=== PATIENT | male | born 1950 | race Caucasian/White ===

== ENCOUNTER → 2018-02-27 06:59 | Outpatient (CLI) | payer MEDICARE, SELFPAY ==
[2018-02-27 07:40] LABS: Cholesterol 182 mg/dL (140-199); HDL Cholesterol 42 mg/dL (40-60); LDL Cholesterol Calculated 115 mg/dL (<100); Triglycerides 126 mg/dL (35-150)
== END ==
PROVIDERS: PCP Internal Medicine; Visit Provider Internal Medicine Cardiovascular Disease
DX: I10 Essential (primary) hypertension (principal); E78.5 Hyperlipidemia, unspecified
CPT/HCPCS: 36415; 80061

== ENCOUNTER → 2018-03-02 10:46 | Outpatient (CLI) | payer MEDICARE, SELFPAY ==
--- NOTE | 2018-03-02 | DI.ECHO.S_ITS ---
[facility]---------+ [facility] +---------+ : : [address] : : : : [id number] : : : : Phone: [phone]---------+ Echocardiogram Report + + :Name: TORI SINGH Study Date: 03/02/2018 Height: 67 in : :[facility] Weight: 235 lb : : Gender: Male BSA: 2.2 m2 : :: 1950 Age: 68 yrs BP: 116/62 mmHg: :Reason For Study: Chemotherapy F/U (ICD Code V67.2) : : Performed By: Yesenia Mae : :Referring: JOVANI SILVERMAN : + + Interpretation Summary Left ventricular size is at the upper limits of normal. This is decreased compared to the previous study. The ejection fraction is estimated to be 60-65%. There has been no significant change in LV EF since the previous study. The right ventricle is grossly normal size. The right ventricular systolic function is normal. No significant valvular pathology seen. Procedure: A two-dimensional transthoracic echocardiogram with color flow and Doppler was performed. The study quality was technically adequate. Comparison is made with the echocardiogram of 09-01-17. The patient was in normal sinus rhythm during the exam. Left Ventricle: There is normal left ventricular wall thickness. Left ventricular size is at the upper limits of normal. This is decreased compared to the previous study. There is no thrombus. The ejection fraction is estimated to be 60-65%. There has been no significant change since the previous study. There are no focal wall motion abnormalities. Assessment of diastolic parameters indicates a relaxation abnormality of the left ventricle, consistent with normal filling pressures. Right Ventricle: The right ventricle is grossly normal size. The right ventricular systolic function is normal. Atria: The left atrial size is normal. The left atrium has significantly decreased in size since the prior echo exam. The right atrium is borderline dilated. The interatrial septum is intact with no evidence for an atrial septal defect. Mitral Valve: The mitral valve is normal in structure and function. There is trace mitral regurgitation. Aortic Valve: The aortic valve is slightly calcified. The aortic valve is not well visualized. There is no aortic valve stenosis. No aortic regurgitation is present. Tricuspid Valve: The tricuspid valve is normal. The right ventricular systolic pressure is estimated at 24 mmHg assuming a right atrial pressure of 3 mm Hg. There is trace tricuspid regurgitation. Pulmonic Valve: The pulmonic valve is not well visualized. Great Vessels: The aortic root is normal size. The ascending aorta is mildly enlarged. The IVC is of normal diameter and collapses greater than 50% with a sniff. This suggests a low right atrial pressure of 3 mm Hg. Pericardium/ Pleura There is no pericardial effusion. There is no pleural effusion. MMode/2D Measurements & Calculations LVIDd: 5.7 cm Ao root diam: 3.8 cm LVIDs: 3.5 cm Aortic Jxn: 3.1 cm FS: 39.0 % asc Aorta Diam: 3.7 cm EPSS: 1.3 cm Ao Arch Diam (Prox Trans): 3.2 cm IVSd: 1.1 cm LVPWd: 0.95 cm LV parra. diameter/BSA (cm/m^2): 2.6 LV sys. diameter/BSA (cm/m^2): 1.6 LA dimension: 4.3 cm RA long axis: 6.5 cm LA A2 area: 23.0 cm2 RA area: 24.8 cm2 LA A4 area: 23.7 cm2 RA vol: 79.7 ml LA length (vol): 6.6 cm RA : 36.8 ml/m2 LA vol: 70.2 ml IVC diam: 1.7 cm LA vol index: 32.4 ml/m2 RVDd major: 6.8 cm RVD1 (basal): 4.1 cm RVD2 (mid): 3.7 cm Doppler Measurements & Calculations Ao V2 max: 178.8 cm/sec MV E max dhaval: 56.4 cm/sec Ao V2 mean: 112.2 cm/sec MV A max dhaval: 81.6 cm/sec Ao max P.8 mmHg MV E/A: 0.69 Ao mean P.0 mmHg Med Peak E' Dhaval: 6.1 cm/sec Ao V2 VTI: 34.9 cm E/E' med: 9.2 Lat Peak E' Dhaval: 6.1 cm/sec E/E' lat: 9.3 E/e' average: 9.2 MV dec time: 0.37 sec MV P1/2t: 111.8 msec TR max dhaval: 229.0 cm/sec MV P1/2t max dhaval: 56.9 cm/sec TR max P.0 mmHg MVA(P1/2t): 2.0 cm2 PA V2 max: 112.8 cm/sec PA V2 mean: 75.7 cm/sec PA mean P.7 mmHg PA Accel Time: 0.10 sec Reading Physician:FERNANDO
== END ==
PROVIDERS: PCP Internal Medicine; Visit Provider Internal Medicine Cardiovascular Disease
DX: I51.7 Cardiomegaly (principal)
CPT/HCPCS: 93306

== ENCOUNTER → 2018-06-01 08:02 | Outpatient (CLI) | payer MEDICARE, SELFPAY ==
--- NOTE | 2018-06-01 08:45 | DI.CT.S_ITS ---
PROCEDURE: CT CHEST ABD PEL W CON INDICATIONS: surveillance,lymphoma TECHNIQUE: After the administration of oral and intravenous contrast, 5 mm thick sections acquired from the lung apices to the symphysis. 5 mm coronal and sagittal reformats were performed, with additional 7 mm coronal MIP reformats through the lungs. For radiation dose reduction, the following was used: automated exposure control, adjustment of mA and/or kV according to patient size. COMPARISON: [place], [place], PET/CT SKULL BASE TO MID THIGH, 08/22/2017, 10:50. [place], [place], PET NECK TO MID THIGH STD, 05/08/2017, 9:29. [facility], CT, CHEST/ABD/PEL WITH CONTRAST, 10/28/2014, 16:48. [facility], CT, CHEST/ABD/PEL WITH CONTRAST, 11/17/2013, 11:46. [facility], CT, CHEST/ABD/PEL WITH CONTRAST, 07/29/2013, 8:35. [facility], CT, ABDOMEN/PELVIS WITH CONTRAST, 07/20/2012, 10:44. FINDINGS: Image quality: Excellent. CHEST: Lungs and pleura: No acute airspace opacities. No pleural effusions or pneumothorax. Central and peripheral airways appear patent and normal in caliber. Mediastinum: Heart size is normal. Atherosclerotic calcifications are noted in the aorta, great vessels and the coronary vasculature. No pericardial effusion. No mediastinal or hilar adenopathy by size criteria. Thoracic aorta and central pulmonary arteries are normal in size. Esophagus is normal in caliber. No hiatal hernia. Chest wall: Left chest wall Port-A-Cath. No axillary or supraclavicular adenopathy by size criteria. Thyroid gland is normal. ABDOMEN: Solid organs: Liver is normal in size and enhancement. Mild, diffuse fatty infiltration of the liver. Gallbladder is normal. Biliary system is non dilated. Pancreas enhances normally. Spleen is normal in size and enhancement. No adrenal nodules. Kidneys demonstrate normal size and enhancement, without hydronephrosis. Small bilateral renal cysts. Peritoneum and bowel: Bowel loops demonstrate normal wall thickness and caliber. No free fluid or air. The appendix is normal. Nodes and vessels: 1.2 cm in short axis lower aortocaval retroperitoneal lymph node is noted which is slightly decreased in size compared to 08/22/2017. Additional enlarged retroperitoneal lymph nodes identified by prior PET/CT scan are decreased in size with with all below pathologic size criteria in the current study. No mesenteric adenopathy by size criteria. Aorta and inferior vena cava are normal in size. Scattered atherosclerotic calcifications involving the abdominal and pelvic vasculature. Miscellaneous: Small fat-containing umbilical hernia is stable. PELVIS: Genitourinary: Bladder wall thickness is normal. Miscellaneous: No inguinal hernias. Single, 1.5 cm right inguinal lymph node is noted which is slightly decreased in size compared to prior PET/CT scan. Additional enlarged right inguinal lymph nodes have decreased in size compared to prior PET/CT scan obtained 08/22/2017 with all below pathologic size criteria in the current study. Bones: No suspicious bony lesions. No vertebral body compression fractures. Spine degenerative disc disease and facet arthropathy. IMPRESSION: 1. Enlarged retroperitoneal, iliac and inguinal lymph nodes have decreased in number compared to prior PET CT scan obtained 08/22/2017 with only a single lower aortocaval retroperitoneal pathologically sized lymph node and a single right inguinal pathologically sized lymph node identified in the current study. 2. No new lymphadenopathy based on size criteria. 3. Atherosclerosis including the coronary vasculature. 4. Mild hepatic steatosis. Dictated by: Vaishali Zurita MD, PhD on 06/01/2018 at 10:25 Approved by: Vaishali Zurita MD, PhD on 06/01/2018 at 11:09
== END ==
PROVIDERS: PCP Internal Medicine; Visit Provider Nurse Practitioner Gerontology
DX: C85.90 Non-Hodgkin lymphoma, unspecified, unspecified site (principal); I25.10 Atherosclerotic heart disease of native coronary artery without angina pectoris; K76.0 Fatty (change of) liver, not elsewhere classified; R59.0 Localized enlarged lymph nodes
CPT/HCPCS: 71260; 74177; Q9967

== ENCOUNTER 2019-08-30 12:12 | Day surgery (SDC) | payer MEDICARE, SELFPAY ==
[2019-08-25 13:38] VITALS: BMI 34.9
[2019-08-30] VITALS (7 sets, daily range): BP systolic 123–146; BP diastolic 72–83; PULSE 55–63; RESP 11–16; TEMP 36.2–36.6; O2SAT 93–96; BMI 34.9
[2019-08-30] MEDS: LACTATED RINGERS 1,000 ML 100 ML IV (12:44)
--- NOTE | 2019-08-30 12:55 | PM.HP.1 ---
History of Present Illness History of Present Illness Date Patient Seen: 08/30/19 Time Patient Seen: 12:55 Chief complaint: [id number] REMOVE PORT-A-CATH Narrative: Patient is a gentleman post treatment of lymphoma for removal of his Port-A-Cath Patient History Medical History Acid reflux (Acute) Arthritis (Acute) Chronic pain of right knee (Acute) HLD (hyperlipidemia) (Acute) HTN (hypertension) (Acute) Hypothyroid (Acute) Myocardial infarction (Acute ~1986) Neuropathy (Acute) Port-A-Cath in place (Acute ~04/2017) Reactive airway disease (Acute) Seasonal allergies (Acute) Sleep apnea (Acute) Type II diabetes mellitus (Acute) Surgical History History of biopsy (Acute 07/21/13) History of colonoscopy (Acute) History of esophagogastroduodenoscopy (EGD) (Acute) Hx of bilateral cataract extraction (Acute ~2000) Status post correction of deviated nasal septum (Acute ~1999) Family & Social History Social History: household members spouse Tobacco & Substance use: Tobacco type cigarettes,pipe Smoking Status Former smoker alcohol intake current alcohol intake frequency 0-2 drinks per day Substance Use Type does not use Meds Home Medications and Allergies Home Medications Medication Instructions Recorded Confirmed Type nitroglycerin [Nitrostat] 0.6 mg SUBLINGUAL PRN PRN #0 04/16/17 08/25/19 History lidocaine-prilocaine 1 zuhair TOPICAL PRN PRN #30 gm 04/30/17 08/25/19 Rx ibuprofen 400 mg PO TID PRN #0 08/27/17 08/25/19 History carvedilol [Coreg] 2 tab PO BID #0 12/08/17 08/30/19 History aspirin 81 mg PO DAILY 02/13/18 08/30/19 History glipizide 10 mg PO BID 02/13/18 08/30/19 History losartan-hydrochlorothiazide 1 tab PO DAILY 02/13/18 08/30/19 History nortriptyline 10 mg PO BEDTIME 08/03/18 08/30/19 History metformin 1,000 mg PO BID 11/23/18 08/30/19 History levothyroxine 175 mcg PO DAILY 01/18/19 08/30/19 History polyethylene glycol 3350 [Miralax] 1 g PO DAILY 01/18/19 08/30/19 History Allergies Allergy/AdvReac Type Severity Reaction Status Date / Time Sulfa (Sulfonamide Allergy Severe ANAPHYLAXIS Verified 08/30/19 12:26 Antibiotics) [SULFA (SULFONAMIDE ANTIBIOTICS)] lisinopril [LISINOPRIL] Allergy Mild COUGH Verified 08/30/19 12:26 Review of Systems Review of Systems Narrative: No recent chest pain. No breathing difficulties at this time. No abdominal pain. No black or bloody bowel movements. Exam Vital Signs (past 8 hours): - 08/30/19 12:36 Temperature 97.3 F L Pulse Rate 60 Respiratory Rate 16 Blood Pressure 142/83 H Pulse Oximetry 96 Oxygen Delivery Method Room Air Narrative Exam Narrative: Pleasant cooperative patient no apparent distress. Lungs are clear to auscultation. No rales or rhonchi. Heart regular rate and rhythm no murmur gallop. Abdomen is soft and protuberant, nontender without mass. No obvious hernias. Patient is alert and oriented x3. Port is located in the left infraclavicular fossa. The skin over it is a little attenuated. Assessment & Plan Assessment & Plan narrative: Patient for port removal. Glucose is 202. He was given IV insulin 5 units of Humulin regular. Will recheck. This is a fairly minor procedures so I would not delay proceeding to the operating room. I've discussed the procedure including risks of bleeding infection the possibility of a divot where remove the port. He understands and wishes to proceed
[2019-08-30] MEDS: INSULIN REGULAR 100 UNIT/ML 3 ML VIAL IV (12:57)
--- NOTE | 2019-08-30 12:58 | PM.PREOP ---
Pre-operative Note Interval Note History & Physical reviewed/Exam performed by Physician: Yes Changes to H&P: No
[2019-08-30] MEDS: CEFAZOLIN 2 GM/100 ML FROZ.PIGGY IV (13:15)
--- NOTE | 2019-08-30 13:37 | SUR.OPER ---
Supine on padded OR bed, head on pillow, arms secured on padded arm boards at <90 degrees abduction, legs uncrossed, safety belt at thigh, tape over blanket over lower legs.
[2019-08-30] MEDS: BUPIVACAINE 0.5% (PF) VIAL 10 ML INJ (13:41)
--- NOTE | 2019-08-30 13:56 | PM.OP.1 ---
Operative Date/Time/Diagnoses Date of procedure: 08/30/19 Time of procedure: 13:56 Pre-op diagnosis: History of lymphoma post treatment Post-op diagnosis: same Procedure & Clinicians Procedure: Removal Port-A-Cath Same procedure as scheduled: Yes Indications: Patient has completed chemotherapy. Request made removed Port-A-Cath. Surgeon: José Miguel Calabrese Click Yes if Unassisted: Yes Anesthesia Type: General Operative Notes Findings: Port removed intact Closure Type: primary Specimen(s): none sent Estimated Blood Loss (mL): 5 Blood products transfused: none Procedure in detail: The patient was placed supine on the operating room table and underwent general LMA anesthesia. He was prepped and draped in the usual fashion. Local anesthetic was infiltrated in a field block fashion around the port. Incisions made through the old scar up. This carried down level the port. The port was dissected from surrounding structures and the catheter pulled out. A [id number] 3 0 Vicryl was used to close the catheter tract. The subcu was closed with interrupted 3 0 Vicryl and skin was closed with vertical mattress for nylon sutures because of the unevenness of the skin given the location of the port right under the incision. Dressing was applied the patient was awakened extubated taken recovery area in good condition Complications: none Post-operative Condition: stable Disposition: PACU
--- NOTE | 2019-08-30 14:19 | SUR.PHASEI ---
1419 Stable, oriented, tolerating Po well, no pain/nausea
== END 2019-08-30 14:45 | disposition home or self-care (01) ==
PROVIDERS: Family Provider Internal Medicine; PCP Internal Medicine; Visit Provider Specialist
PROC: (CPT 36590; principal; 2019-08-30 13:15)
DX: Z85.72 Personal history of non-Hodgkin lymphomas (principal); Z45.2 Encounter for adjustment and management of vascular access device; I10 Essential (primary) hypertension; E78.5 Hyperlipidemia, unspecified; E03.9 Hypothyroidism, unspecified; G47.30 Sleep apnea, unspecified; E11.9 Type 2 diabetes mellitus without complications; I25.2 Old myocardial infarction
CPT/HCPCS: 36590; J0690; J2704; J3010

== ENCOUNTER → 2020-03-19 14:35 | Outpatient (CLI) | payer MEDICARE, SELFPAY ==
[2020-03-20 08:41] LABS: COVID19 Sendout Not Detected (Not Detect)
== END ==
PROVIDERS: Family Provider Internal Medicine; PCP Internal Medicine; Visit Provider Physician Assistant
DX: Z01.812 Encounter for preprocedural laboratory examination (principal)
CPT/HCPCS: 87635

== ENCOUNTER 2020-03-22 10:40 | Day surgery (SDC) | payer MEDICARE, SELFPAY ==
[2020-03-22 11:53] VITALS: BP 120/74; PULSE 54; RESP 16; TEMP 36.4; O2SAT 97; BMI 35.2
[2020-03-22] MEDS: SODIUM CHLORIDE 0.9% 1,000 ML 100 ML IV (12:01)
--- NOTE | 2020-03-22 12:49 | PM.HP.1 ---
History of Present Illness History of Present Illness Date Patient Seen: 03/22/20 Date of Onset of Symptoms: 03/22/20 Chief complaint: [id number] Narrative: Family history of colon cancer in both of his brothers 1 in his 30s. Personal history of colon polyps Patient History Medical History (Updated 08/31/19 @ 16:57 by José Miguel Calabrese MD) Acid reflux (Acute) Arthritis (Acute) Chronic pain of right knee (Acute) HLD (hyperlipidemia) (Acute) HTN (hypertension) (Acute) Hypothyroid (Acute) Myocardial infarction (Acute ~1986) Neuropathy (Acute) Port-A-Cath in place (Acute ~04/2017) Reactive airway disease (Acute) Seasonal allergies (Acute) Sleep apnea (Acute) Type II diabetes mellitus (Acute) Surgical History History of biopsy (Acute 07/21/13) History of colonoscopy (Acute) History of esophagogastroduodenoscopy (EGD) (Acute) Hx of bilateral cataract extraction (Acute ~2000) Status post correction of deviated nasal septum (Acute ~1999) Family & Social History Social History: household members spouse Tobacco & Substance use: Tobacco type cigarettes,pipe Smoking Status Former smoker alcohol intake current alcohol intake frequency 0-2 drinks per day Substance Use Type does not use Meds Home Medications and Allergies Home Medications Medication Instructions Recorded Confirmed Type nitroglycerin [Nitrostat] 0.6 mg SUBLINGUAL PRN PRN #0 04/16/17 03/22/20 History ibuprofen 400 mg PO TID PRN #0 08/27/17 03/22/20 History carvedilol [Coreg] 2 tab PO BID #0 12/08/17 03/22/20 History aspirin 81 mg PO DAILY 02/13/18 03/22/20 History glipizide 10 mg PO BID 02/13/18 03/22/20 History losartan-hydrochlorothiazide 1 tab PO DAILY 02/13/18 03/22/20 History nortriptyline 10 mg PO BEDTIME 08/03/18 03/22/20 History metformin 1,000 mg PO BID 11/23/18 03/22/20 History levothyroxine 175 mcg PO DAILY 01/18/19 03/22/20 History polyethylene glycol 3350 [Miralax] 1 g PO DAILY 01/18/19 03/22/20 History Allergies Allergy/AdvReac Type Severity Reaction Status Date / Time Sulfa (Sulfonamide Allergy Severe ANAPHYLAXIS Verified 03/22/20 12:03 Antibiotics) [SULFA (SULFONAMIDE ANTIBIOTICS)] lisinopril [LISINOPRIL] Allergy Mild COUGH Verified 03/22/20 12:03 nickel AdvReac Verified 03/22/20 12:03 Tegaderm Allergy Intermediate Rash Uncoded 03/22/20 12:03 Exam Vital Signs (past 8 hours): - 03/22/20 11:53 Temperature 97.6 F Pulse Rate 54 L Respiratory Rate 16 Blood Pressure 120/74 Pulse Oximetry 97 Oxygen Delivery Method Room Air Narrative Exam Narrative: Oropharynx free of lesions Chest clear to auscultation percussion Cardiac exam reveals no S3 or murmur Assessment & Plan Assessment & Plan narrative: Family history of colon cancer in 2 first-degree relatives 100 very young age and personal history of colon polyps. Need for follow-up colonoscopy. Risks, benefits, alternatives have been explained.
--- NOTE | 2020-03-22 12:51 | PM.OP.ENDO ---
Operative Date/Time/Diagnoses Date of procedure: 03/22/20 Time of procedure: 12:51 Pre-op diagnosis: See indication and findings Procedure & Clinicians Study performed: colonoscopy Indications: Family history of colon cancer in 2 brothers 1 less than 40 years of age Surgeon: Gianna Casas Procedure Notes Procedure in detail: After informed consent was obtained the patient was placed in left lateral decubitus position. The video colonoscope was introduced the rectum slowly advanced to cecum. Preparation was good. On slow withdrawal mucosa was carefully examined. The scope was removed. The patient tolerated procedure well. Blood loss none Complications none Sedation Total sedation time 18 minutes Versed 4 mg fentanyl 100 mg IV titration Findings 1. Normal colonoscopy to cecum Given his strong family history he will need follow-up colonoscopy in 5 years.
[2020-03-22] MEDS: MIDAZOLAM 5 MG/5 ML VIAL IV (13:04)
[2020-03-22] MEDS: fentaNYL 250 MCG/5 ML INJ IV (13:04)
[2020-03-22 13:09] VITALS: BP 114/74; PULSE 56; RESP 11; TEMP 36.2; O2SAT 91
[2020-03-22 13:14] VITALS: BP 113/73; PULSE 57; RESP 12; O2SAT 91
[2020-03-22 13:19] VITALS: BP 109/50; PULSE 59; RESP 16; O2SAT 97
[2020-03-22 13:24] VITALS: BP 114/63; PULSE 59; RESP 12; O2SAT 95
[2020-03-22 13:30] VITALS: BP 115/56; PULSE 53; RESP 14; O2SAT 97
== END 2020-03-22 14:00 | disposition home or self-care (01) ==
PROVIDERS: PCP Internal Medicine; Referring Provider Internal Medicine Gastroenterology; Visit Provider Internal Medicine Gastroenterology
PROC: 0DJD8ZZ Inspection of Lower Intestinal Tract, Via Natural or Artificial Opening Endoscopic (ICD-10-PCS; CPT 45378; principal; 2020-03-22 12:30)
DX: Z12.11 Encounter for screening for malignant neoplasm of colon (principal); Z86.010 Personal history of colon polyps; Z80.0 Family history of malignant neoplasm of digestive organs; I10 Essential (primary) hypertension; E78.5 Hyperlipidemia, unspecified; E03.9 Hypothyroidism, unspecified; I25.2 Old myocardial infarction; G47.33 Obstructive sleep apnea (adult) (pediatric); E11.9 Type 2 diabetes mellitus without complications; Z79.84 Long term (current) use of oral hypoglycemic drugs
CPT/HCPCS: G0105; J2250; J3010

== ENCOUNTER → 2020-04-17 08:35 | Outpatient (CLI) | payer MEDICARE, SELFPAY ==
[2020-04-17 09:03] LABS: Add Manual Diff / Slide Review NO; Basophils Absolute Auto 100 /uL (0-100); Basophils Percent Auto 1.1 % (0-2); Eosinophils Absolute Auto 100 /uL (0-450); Eosinophils Percent Auto 2.5 % (2-4); Hematocrit 41.5 % (41-53); Hemoglobin 14.2 g/dL (13.5-17.5); Lymphocytes Absolute Auto 1300 /uL (1100-4500); Lymphocytes Percent Auto 23.6 % (25-40); Mean Corpuscular HGB Conc 34.1 % (30-36); Mean Corpuscular Hemoglobin 31.4 PG (26-34); Mean Corpuscular Volume 92.2 fL (80-100); Monocytes Absolute Auto 700 /uL (0-900); Monocytes Percent Auto 13.2 % (3-14); Neutrophils Absolute Auto 3300 /uL (1500-7000); Neutrophils Percent Auto 59.6 % (50-75); Platelet Count 171 X10^3/uL (150-400); Red Cell Distribution Width 13.4 % (11.6-14.8); White Blood Cell Count 5.5 X10^3/uL (4.5-11.0)
[2020-04-17 09:18] LABS: Alanine Aminotransferase 29 IU/L (<50); Albumin Globulin Ratio 1.6 (1.0-2.8); Alkaline Phosphatase 64 U/L (38-126); Aspartate Aminotransferase 34 IU/L (17-59); BUN Creatinine Ratio 27.2 (6-22); Bilirubin Total 0.8 mg/dL (0.2-1.3); Blood Urea Nitrogen 25 mg/dL (9-20); Calcium 9.2 mg/dL (8.4-10.2); Carbon Dioxide 29 mmol/L (22-32); Chloride 101 mmol/L (98-107); Estimated Glomerular Filt Rate > 60.0 mL/min (>60); Globulin 2.5 g/dL (1.7-4.1); Glucose 198 mg/dL (80-110); HEMOLYSIS < 15 (0-50); Lactate Dehydrogenase 347 U/L (313-618); Potassium 3.8 mmol/L (3.4-5.1); Sodium 136 mmol/L (137-145); Total Protein 6.5 g/dL (6.3-8.2)
[2020-04-19 04:08] LABS: Beta-2-Microglobulin 1.6 mg/L (0.6-2.4)
== END ==
PROVIDERS: PCP Internal Medicine; Referring Provider Internal Medicine Hematology & Oncology; Visit Provider Internal Medicine Hematology & Oncology
DX: C85.90 Non-Hodgkin lymphoma, unspecified, unspecified site (principal)
CPT/HCPCS: 36415; 80053; 82232; 83615; 85025

== ENCOUNTER → 2020-07-25 15:31 | Outpatient (CLI) | payer MEDICARE, SELFPAY ==
[2020-07-27 07:25] LABS: COVID19 Sendout Not Detected (Not Detect)
== END ==
PROVIDERS: PCP Internal Medicine; Visit Provider Physician Assistant
DX: Z01.812 Encounter for preprocedural laboratory examination (principal)
CPT/HCPCS: 87635

== ENCOUNTER → 2020-07-28 13:57 | Outpatient (CLI) | payer MEDICARE, SELFPAY ==
--- NOTE | 2020-07-28 | DI.NM.S_ITS ---
PROCEDURE: NM EXERCISE TREADMILL NON NUC COMPARISON: None. INDICATIONS: Old myocardial infarction FINDINGS: The patient exercised for 7 minutes and 55 seconds on mahin protocol and reached 10;.1 MET with JOSÉ MANUEL -13%. Target heart rate achieved. Appropriate BP response to exercise. Resting ECG shows sinus rhythm with non-specific T wave flattening diffusely. No ST depressions with exercise or during recovery. The T wave inversions noted in the anterolateral leads during recovery is non-diagnostic and likely due to baseline T wave changes. Non-sustained VT runs noted during early recovery (long run being 6 beats long). IMPRESSION: Abnormal due to palpitations associated with non-sustained VT runs during early recovery (longest being 6 beats long). No ischemic ECG changes during the study. No angina during the study. Adequate stress test as target heart rate reached. Dictated by: iMs Montesinos MD on 07/28/2020 at 18:37 Approved by: Mis Montesinos MD on 07/28/2020 at 18:41
--- NOTE | 2020-07-28 | DI.ECHO.S_ITS ---
[facility]---------+ [facility] +---------+ : : [address] : : : : [phone] : : : : Phone: [phone] +---------+ Echocardiogram Report + + :Name: TORI SINGH Study Date: 07/28/2020 Height: 67 in : :[facility] Weight: 226 lb : : Gender: Male BSA: 2.1 m2 : :: 1950 Age: 70 yrs BP: 148/85 mmHg: :Reason For Study: Old Myocardial infarction : :Ordering Physician: Quique : :Chanda Basilio Performed By: Shana Giraldo : + + Interpretation Summary 1) Normal left ventricular thickness, size, wall motion, and systolic function (EF 60-65%). 2) Normal right ventricular size and function. 3) No significant valvular abnormalities. 4) The aortic root is borderline dilated at 4.0cm. 5) Compared to the Echo done 03/02/2018, no significant change. Procedure: A two-dimensional transthoracic echocardiogram with color flow and Doppler was performed. The study quality was technically adequate. Comparison is made with the echocardiogram of 03/02/2018. A contrast injection of Definity was performed to improve assessment of LV function. The patient was in normal sinus rhythm during the exam. Left Ventricle: The left ventricle is normal in size and wall thickness. The ejection fraction is estimated to be 60-65%. Left ventricular systolic function appears normal without focal wall motion abnormalities. Right Ventricle: The right ventricle is normal in size and function. Atria: The left atrial size is normal. Right atrial size is normal. There is no Doppler evidence for an interatrial shunt. Mitral Valve: The mitral valve is normal in structure and function. There is no mitral regurgitation noted. Aortic Valve: The aortic valve is trileaflet. The aortic valve opens well. There is no aortic valve stenosis. No aortic regurgitation is present. Tricuspid Valve: The tricuspid valve is normal in structure and function. There is a trace or physiologic amount of tricuspid regurgitation. Pulmonary artery pressures cannot be estimated because of the lack of a measurable TR jet velocity but the IVC suggests a CVP of around 15 mmHg. Pulmonic Valve: The pulmonic valve leaflets are thin and pliable; valve motion is normal. Great Vessels: The aortic root is borderline dilated. The ascending aorta is at the upper limits of normal in size. The pulmonary artery is normal size. The IVC is dilated (diameter is greater than 2.1 cm) and it collapses less than 50% with a sniff. This suggests a high right atrial pressure of 15 mm Hg. Pericardium/ Pleura There is no pericardial effusion. MMode/2D Measurements & Calculations LVIDd: 4.8 cm LVOT diam: 2.2 cm LVIDs: 3.7 cm Ao root diam: 4.0 cm FS: 22.4 % asc Aorta Diam: 3.8 cm EPSS: 1.1 cm Ao Arch Diam (Prox Trans): 2.6 cm IVSd: 0.89 cm LVPWd: 1.0 cm LV parra. diameter/BSA (cm/m^2): 2.3 LV sys. diameter/BSA (cm/m^2): 1.8 LA A2 area: 24.0 cm2 RA long axis: 6.0 cm LA A4 area: 19.2 cm2 RA area: 15.6 cm2 LA length (vol): 6.3 cm RA vol: 34.2 ml LA vol: 62.0 ml RA : 16.0 ml/m2 LA vol index: 29.1 ml/m2 IVC diam: 2.4 cm RVD1 (basal): 3.2 cm TAPSE: 2.1 cm Doppler Measurements & Calculations Ao V2 max: 160.3 cm/sec LVOT Max Dhaval: 87.6 cm/sec Ao V2 mean: 107.7 cm/sec LV V1 max P.1 mmHg Ao max P.3 mmHg LV V1 VTI: 19.8 cm Ao mean P.1 mmHg MIRIAM(I,D): 2.2 cm2 Ao V2 VTI: 34.4 cm MIRIAM(V,D): 2.1 cm2 sev ratio: 0.58 MIRIAM indexed to BSA (cm^2/m^2): 1.0 MV E max dhaval: 48.7 cm/sec PA V2 max: 71.3 cm/sec MV A max dhaval: 69.5 cm/sec PA V2 mean: 47.8 cm/sec MV E/A: 0.70 PA mean P.0 mmHg Med Peak E' Dhaval: 6.4 cm/sec E/E' med: 7.6 Lat Peak E' Dhaval: 5.0 cm/sec E/E' lat: 9.8 E/e' average: 8.7 MV dec time: 0.32 sec SV(LVOT): 76.3 ml Reading Physician:12:42 PM
== END ==
PROVIDERS: PCP Internal Medicine; Referring Provider Internal Medicine; Visit Provider Internal Medicine Cardiovascular Disease
DX: R94.39 Abnormal result of other cardiovascular function study (principal); I77.810 Thoracic aortic ectasia; R00.2 Palpitations; I25.2 Old myocardial infarction
CPT/HCPCS: 93017; 93306; Q9957

== ENCOUNTER → 2020-08-22 14:59 | Outpatient (ROUT) | payer MEDICARE, SELFPAY ==
[2020-08-22 15:58] LABS: Aspartate Aminotransferase 29 IU/L (17-59); Blood Urea Nitrogen 23 mg/dL (9-20); Calcium 9.6 mg/dL (8.4-10.2); Carbon Dioxide 31 mmol/L (22-32); Chloride 101 mmol/L (98-107); Cholesterol 164 mg/dL (140-199); Estimated Glomerular Filt Rate > 60.0 mL/min (>60); Glucose 189 mg/dL (80-110); HDL Cholesterol 33 mg/dL (40-60); HEMOLYSIS < 15 (0-50); LDL Cholesterol Calculated 101 mg/dL (<100); Sodium 138 mmol/L (137-145); Triglycerides 150 mg/dL (35-150)
[2020-08-22 16:29] LABS: TSH w/ Reflex to FT4 1.03 uIU/mL (0.47-4.68)
[2020-08-22 16:31] LABS: Prostate Specific Antigen 0.886 ng/mL (0.10-4.00)
[2020-08-22 17:44] LABS: Hemoglobin A1C% w Est Avg Glu 7.1 % (4.0-6.0)
== END ==
PROVIDERS: PCP Internal Medicine; Visit Provider Internal Medicine
DX: I10 Essential (primary) hypertension (principal); E78.2 Mixed hyperlipidemia; E11.40 Type 2 diabetes mellitus with diabetic neuropathy, unspecified
CPT/HCPCS: 80048; 80061; 83036; 84153; 84443; 84450

== ENCOUNTER → 2021-12-13 07:33 | Outpatient (CLI) | payer MEDICARE, SELFPAY ==
[2021-12-17 14:49] LABS: Cholesterol, Total 120 mg/dL (100-199); HDL-Cholesterol 33 mg/dL (>39); HDL-Particle (Total) 29.8 umol/L (>=30.5); LDL Particle 783 nmol/L (<1000); LDL Size 20.2 nm (>20.5); LDL-Cholsterol 61 mg/dL (0-99); LP-IR Score 47 (<=45); Small LDL- Particle 362 nmol/L (<=527); Triglycerides 148 mg/dL (0-149)
== END ==
PROVIDERS: PCP Internal Medicine; Referring Provider Nurse Practitioner; Visit Provider Nurse Practitioner
DX: E78.5 Hyperlipidemia, unspecified (principal)
CPT/HCPCS: 36415; 80061; 83704

== ENCOUNTER → 2022-02-26 09:01 | Outpatient (CLI) | payer MEDICARE, SELFPAY ==
--- NOTE | 2022-02-26 09:02 | DI.ECHO.S_ITS ---
[facility]---------+ [facility] +---------+ : : [address] : : : : [id number] : : : : Phone: [phone]---------+ Echocardiogram Report + + :Name: TORI SINGH Study Date: 02/26/2022 Height: 67.5 in: :[facility] ReadingLocation: Weight: 215 lb : : Gender: Male BSA: 2.1 m2 : :: 1950 Age: 72 yrs BP: 151/66 mmHg: :Reason For Study: CARDIOMEGALY : :Ordering Physician: MIKAEL, : :ORACIO Foster Performed By: Isi Lancaster : :Referring: WADE YOUSSEF : + + Interpretation Summary 1) Normal left ventricular size, wall motion, and systolic function (EF 60- 65%). 2) Normal right ventricular size and function. 3) There is mild aortic stenosis (valve area 1.7cm2, mean gradient 8mmHg, severity ratio 0.56). 4) Compared to the echo done 07/28/2020, mild aortic stenosis is present on this study. Procedure: A two-dimensional transthoracic echocardiogram with color flow and Doppler was performed. The study quality was technically adequate. Comparison is made with the echocardiogram of 07/28/2020. Left Ventricle: The left ventricle is normal in size. Left ventricular wall thickness is mildly increased. The ejection fraction is estimated to be 60- 65%. Left ventricular systolic function appears normal without focal wall motion abnormalities. Diastolic parameters suggest probable normal left ventricular diastolic function and normal filling pressures. Right Ventricle: The right ventricle is normal in size and function. Atria: The left atrial size is normal. Right atrial size is normal. There is no Doppler evidence for an interatrial shunt. Mitral Valve: The mitral valve is normal in structure and function. There is no mitral regurgitation noted. Aortic Valve: The aortic valve is trileaflet. The aortic valve is slightly calcified. There is mild aortic valve sclerosis. There is mild aortic stenosis. No aortic regurgitation is present. Tricuspid Valve: The tricuspid valve is normal in structure and function. There is trace tricuspid regurgitation. Pulmonic Valve: The pulmonic valve is not well seen, but is grossly normal. There is no pulmonic valvular regurgitation. Great Vessels: The aortic root is normal size. The aortic root is borderline dilated. The ascending aorta is at the upper limits of normal in size. The IVC is of normal diameter and collapses greater than 50% with a sniff. This suggests a low right atrial pressure of 3 mm Hg. Pericardium/ Pleura There is no pericardial effusion. There is no pleural effusion. MMode/2D Measurements & Calculations LVIDd: 4.6 cm LVOT diam: 2.0 cm LVIDs: 3.4 cm Ao root diam: 3.9 cm FS: 26.9 % asc Aorta Diam: 4.0 cm IVSd: 1.0 cm Ao Arch Diam (Prox Trans): 3.4 cm LVPWd: 1.1 cm LV parra. diameter/BSA (cm/m^2): 2.2 LV sys. diameter/BSA (cm/m^2): 1.6 LA A2 area: 22.3 cm2 RA long axis: 6.1 cm LA A4 area: 24.0 cm2 RA area: 19.2 cm2 LA length (vol): 7.2 cm RA vol: 51.4 ml LA vol: 63.4 ml RA : 24.5 ml/m2 LA vol index: 30.2 ml/m2 IVC diam: 1.5 cm RVD1 (basal): 3.6 cm RVD2 (mid): 3.5 cm TAPSE: 2.1 cm Doppler Measurements & Calculations Ao V2 max: 188.8 cm/sec LVOT Max Dhaval: 98.0 cm/sec Ao V2 mean: 134.5 cm/sec LV V1 max P.8 mmHg Ao max P.3 mmHg LV V1 VTI: 22.9 cm Ao mean P.0 mmHg MIRIAM(I,D): 1.7 cm2 Ao V2 VTI: 41.0 cm MIRIAM(V,D): 1.6 cm2 sev ratio: 0.56 MIRIAM indexed to BSA (cm^2/m^2): 0.80 MV E max dhaval: 66.4 cm/sec PA V2 max: 101.4 cm/sec MV A max dhaval: 88.5 cm/sec PA V2 mean: 74.7 cm/sec MV E/A: 0.75 PA mean P.4 mmHg Med Peak E' Dhaval: 5.9 cm/sec PA pr(Accel): 24.2 mmHg E/E' med: 11.3 Lat Peak E' Dhaval: 8.4 cm/sec E/E' lat: 7.9 E/e' average: 9.6 MV dec time: 0.33 sec SVLVOT): 68.7 ml Reading Physician:05:17 PM
== END ==
PROVIDERS: PCP Internal Medicine; Referring Provider Nurse Practitioner; Visit Provider Nurse Practitioner
DX: I51.7 Cardiomegaly (principal); I35.0 Nonrheumatic aortic (valve) stenosis
CPT/HCPCS: 93306

== ENCOUNTER → 2022-10-03 13:19 | Outpatient (CLI) | payer MEDICARE, SELFPAY ==
--- NOTE | 2022-10-03 13:21 | DI.RAD.S_ITS ---
PROCEDURE: XR ANKLE RT MIN 3V INDICATIONS: Right ankle pain TECHNIQUE: 3 views of the ankle were acquired. COMPARISON: None. FINDINGS: Bones: No fractures or dislocations. Ankle mortise is normally aligned. No suspicious bony lesions. Soft tissues: No tibiotalar joint effusion. Achilles tendon appears normal. IMPRESSION: No acute radiographic findings. If pain persists, followup imaging in 5-7 days is recommended to exclude occult fracture. Dictated by: Chastity Molina M.D. on 10/03/2022 at 15:12 Approved by: Chastity Molina M.D. on 10/03/2022 at 15:13
== END ==
PROVIDERS: PCP Internal Medicine; Referring Provider Internal Medicine; Visit Provider Internal Medicine
DX: M25.571 Pain in right ankle and joints of right foot (principal)
CPT/HCPCS: 73610

== ENCOUNTER → 2022-12-04 08:32 | Outpatient (CLI) | payer MEDICARE, SELFPAY ==
[2022-12-04 10:14] LABS: Creatinine Urine Random 95.8 mg/dL
[2022-12-04 10:17] LABS: Hemoglobin A1C% w Est Avg Glu 6.9 % (4.0-6.0)
[2022-12-04 10:19] LABS: Microalbumi Creatinin Ratio Ur 7.3 ug/mg CR (<30); Microalbumin Urine Random 0.7 mg/dL (0-1.6)
[2022-12-04 10:27] LABS: Alanine Aminotransferase 27 IU/L (<50); Albumin 3.9 g/dL (3.5-5.0); Albumin Globulin Ratio 1.8 (1.0-2.8); Alkaline Phosphatase 65 U/L (38-126); Aspartate Aminotransferase 26 IU/L (17-59); BUN Creatinine Ratio 21.7 (6-22); Bilirubin Total 0.6 mg/dL (0.2-1.3); Blood Urea Nitrogen 18 mg/dL (9-20); Calcium 9.1 mg/dL (8.4-10.2); Carbon Dioxide 28 mmol/L (22-32); Chloride 104 mmol/L (98-107); Cholesterol 133 mg/dL (140-199); Estimated Glomerular Filt Rate > 60 mL/min (>60); Globulin 2.2 g/dL (1.7-4.1); Glucose 142 mg/dL (80-110); HDL Cholesterol 39 mg/dL (40-60); HEMOLYSIS < 15 (0-50); LDL Cholesterol Calculated 76 mg/dL (<100); Potassium 4.1 mmol/L (3.4-5.1); Sodium 139 mmol/L (137-145); Total Protein 6.1 g/dL (6.3-8.2); Triglycerides 88 mg/dL (35-150)
[2022-12-04 10:55] LABS: TSH w/ Reflex to FT4 0.87 uIU/mL (0.47-4.68)
[2022-12-06 08:36] LABS: Cholesterol, Total 142 mg/dL (100-199); HDL-Cholesterol 43 mg/dL (>39); HDL-Particle (Total) 29.9 umol/L (>=30.5); LDL Particle 1131 nmol/L (<1000); LDL Size 20.9 nm (>20.5); LDL-Cholsterol 81 mg/dL (0-99); LP-IR Score 49 (<=45); Small LDL- Particle 478 nmol/L (<=527); Triglycerides 93 mg/dL (0-149)
== END ==
PROVIDERS: PCP Internal Medicine; Referring Provider Nurse Practitioner; Visit Provider Nurse Practitioner
DX: E11.59 Type 2 diabetes mellitus with other circulatory complications; E78.5 Hyperlipidemia, unspecified; I10 Essential (primary) hypertension; E03.9 Hypothyroidism, unspecified; E78.2 Mixed hyperlipidemia
CPT/HCPCS: 36415; 80053; 80061; 82043; 82570; 83036; 83704; 84443

== ENCOUNTER → 2023-02-25 11:10 | Outpatient (CLI) | payer MEDICARE, SELFPAY ==
--- NOTE | 2023-02-25 11:11 | DI.RAD.S_ITS ---
PROCEDURE: XR ANKLE LT MIN 3V INDICATIONS: felt a pop while stomping dirt in a planter 5 d ago TECHNIQUE: 3 views of the ankle were acquired. COMPARISON: [facility], CR, XR ANKLE RT MIN 3V, 10/03/2022, 13:29. FINDINGS: Bones: No fractures or dislocations. Ankle mortise is normally aligned. No suspicious bony lesions. Small plantar calcaneal enthesophyte. Soft tissues: No tibiotalar joint effusion. Achilles tendon appears normal. IMPRESSION: Left ankle without acute fracture or malalignment. Small plantar calcaneal enthesophyte. If there are persistent symptoms or clinical suspicion for pathology, then repeat radiographs or advanced imaging (CT or MRI) may be considered for further evaluation. Dictated by: Nakul Chaves M.D. on 02/25/2023 at 15:22 Approved by: Nakul Chaves M.D. on 02/25/2023 at 15:24
== END ==
PROVIDERS: PCP Internal Medicine; Referring Provider Nurse Practitioner Family; Visit Provider Nurse Practitioner Family
DX: M25.572 Pain in left ankle and joints of left foot (principal); M77.32 Calcaneal spur, left foot
CPT/HCPCS: 73610

== ENCOUNTER → 2023-04-24 08:47 | Outpatient (CLI) | payer MEDICARE, SELFPAY ==
[2023-04-24 10:02] LABS: BUN Creatinine Ratio 26.3 (6-22); Blood Urea Nitrogen 20 mg/dL (9-20); Calcium 9.1 mg/dL (8.4-10.2); Carbon Dioxide 27 mmol/L (22-32); Chloride 103 mmol/L (98-107); Estimated Glomerular Filt Rate > 60 mL/min (>60); Glucose 154 mg/dL (80-110); HEMOLYSIS < 15 (0-50); Sodium 139 mmol/L (137-145)
[2023-04-25 07:09] LABS: x Labcorp Estim. Avg Glu (eAG) 157 mg/dL (.); x Labcorp Hemoglobin A1c 7.1 % (4.8-5.6)
== END ==
PROVIDERS: PCP Internal Medicine; Referring Provider Internal Medicine; Visit Provider Internal Medicine
DX: I10 Essential (primary) hypertension (principal); E11.59 Type 2 diabetes mellitus with other circulatory complications
CPT/HCPCS: 36415; 80048; 83036

== ENCOUNTER → 2023-05-21 07:59 | Outpatient (CLI) | payer MEDICARE, SELFPAY ==
[2023-05-23 18:33] LABS: Cholesterol, Total 118 mg/dL (100-199); HDL-Cholesterol 43 mg/dL (>39); HDL-Particle (Total) 40.3 umol/L (>=30.5); LDL Particle 1074 nmol/L (<1000); LDL Size 19.7 nm (>20.5); LDL-Cholsterol 58 mg/dL (0-99); LP-IR Score 60 (<=45); Small LDL- Particle 795 nmol/L (<=527); Triglycerides 87 mg/dL (0-149)
== END ==
PROVIDERS: PCP Internal Medicine; Referring Provider Nurse Practitioner; Visit Provider Nurse Practitioner
DX: E78.5 Hyperlipidemia, unspecified (principal)
CPT/HCPCS: 36415; 80061; 83704

== ENCOUNTER → 2023-05-27 13:46 | Outpatient (CLI) | payer MEDICARE, SELFPAY ==
--- NOTE | 2023-05-27 | DI.ECHO.S_ITS ---
[facility] +---------+ [facility] +---------+ : : [address] : : : : [id number] : : : : Phone: [phone]+ Echocardiogram Report + + :Name: TORI SINGH Study Date: 05/27/2023 Height: 68 in : :[facility] ReadingLocation: Weight: 210 lb : : Gender: Male BSA: 2.1 m2 : :: 1950 Age: 73 yrs BP: 141/74 mmHg: :Reason For Study: Nonrheumatic Aortic Valve Stenosis : :Ordering Physician: MIKAEL, : :WADE Foster Performed By: Iram Gutiérrez : :Referring: WADE YOUSSEF W : + + Interpretation Summary Mild concentric left ventricular hypertrophy with ejection fraction 60-65%. Mldly dilated eft atrium. Mild aortic stenosis. The ascending aorta is mildly enlarged. Comparison is made with the echocardiogram of 02/26/2022, there has been no signifcant change. Procedure: A two-dimensional transthoracic echocardiogram with color flow and Doppler was performed. The study quality was technically difficult. Comparison is made with the echocardiogram of 02/26/2022. A contrast injection of Definity was performed to improve assessment of LV function. The patient was in normal sinus rhythm during the exam. Left Ventricle: The left ventricle is normal in size. There is mild concentric left ventricular hypertrophy. The ejection fraction is estimated to be 60-65%. There are no focal wall motion abnormalities. Right Ventricle: The right ventricle is normal in size and function. Atria: The left atrium is mildly dilated. Right atrial size is normal. There is no Doppler evidence for an interatrial shunt. Mitral Valve: The mitral valve is normal. There is no mitral valve stenosis. There is trace mitral regurgitation. Aortic Valve: The aortic valve is trileaflet. The aortic valve is moderately calcified. There is mild aortic stenosis. The peak aortic velocity is 2.02 m/sec. The aortic valve mean gradient is 9 mmHg. No aortic regurgitation is present. Tricuspid Valve: The tricuspid valve is normal. There is no tricuspid stenosis. There is trace tricuspid regurgitation. The right ventricular systolic pressure is estimated to be at least 36 mmHg based on an estimated right atrial pressure of 15 mm Hg. Pulmonic Valve: The pulmonic valve is not well visualized. There is no pulmonic valvular stenosis. There is no pulmonic valvular regurgitation. Great Vessels: The aortic root is borderline dilated. The ascending aorta is mildly enlarged. The pulmonary artery is normal size. The IVC is dilated (diameter is greater than 2.1 cm) and it collapses less than 50% with a sniff. This suggests a high right atrial pressure of 15 mm Hg. Pericardium/ Pleura There is no pericardial effusion. MMode/2D Measurements & Calculations LVIDd: 5.2 cm LVOT diam: 2.1 cm LVIDs: 3.1 cm Ao root diam: 3.9 cm FS: 40.4 % asc Aorta Diam: 4.1 cm EPSS: 0.90 cm IVSd: 1.1 cm LVPWd: 1.5 cm LV parra. diameter/BSA (cm/m^2): 2.5 LV sys. diameter/BSA (cm/m^2): 1.5 LA A2 area: 24.4 cm2 RA long axis: 5.3 cm LA A4 area: 21.2 cm2 RA area: 15.8 cm2 LA length (vol): 6.9 cm RA vol: 39.9 ml LA vol: 63.6 ml RA : 19.1 ml/m2 LA vol index: 30.5 ml/m2 IVC diam: 2.2 cm RVD1 (basal): 3.5 cm LVLs ap4: 5.9 cm LVLd ap2: 8.2 cm TAPSE_phl: 2.6 cm LVLs ap2: 6.6 cm Doppler Measurements & Calculations Ao V2 max: 189.0 cm/sec LVOT Max Dhaval: 102.5 cm/sec Ao V2 mean: 129.8 cm/sec LV V1 max P.2 mmHg Ao max P.0 mmHg LV V1 VTI: 24.2 cm Ao mean P.0 mmHg MIRIAM(I,D): 1.9 cm2 Ao V2 VTI: 44.8 cm MIRIAM(V,D): 1.9 cm2 sev ratio: 0.54 MIRIAM indexed to BSA (cm^2/m^2): 0.90 MV E max dhaval: 63.4 cm/sec TR max dhaval: 228.8 cm/sec MV A max dhaval: 86.0 cm/sec TR max P.9 mmHg MV E/A: 0.74 PA V2 max: 98.0 cm/sec Med Peak E' Dhaval: 6.4 cm/sec PA V2 mean: 67.6 cm/sec E/E' med: 9.9 PA mean P.0 mmHg Lat Peak E' Dhaval: 7.1 cm/sec E/E' lat: 8.9 E/e' average: 9.4 MV dec time: 0.26 sec SV(LVOT): 83.9 ml AV VR_phl: 0.54 MIRIAM(VTI)/BSA_phl: 0.89 Electronically signed by: Zaid Leavitt on Reading Physician:05/27/2023 04:52 PM
== END ==
PROVIDERS: PCP Internal Medicine; Referring Provider Nurse Practitioner; Visit Provider Nurse Practitioner
DX: I35.0 Nonrheumatic aortic (valve) stenosis (principal); I77.89 Other specified disorders of arteries and arterioles
CPT/HCPCS: 93306; Q9957

== ENCOUNTER → 2023-09-03 13:38 | Outpatient (CLI) | payer MEDICARE, SELFPAY ==
[2023-09-03 14:06] LABS: Add Manual Diff / Slide Review NO; Basophils Absolute Auto 100 /uL (0-100); Basophils Percent Auto 1.4 % (0-2); Eosinophils Absolute Auto 100 /uL (0-450); Eosinophils Percent Auto 2.2 % (2-4); Hematocrit 45.7 % (41-53); Hemoglobin 15.5 g/dL (13.5-17.5); Lymphocytes Absolute Auto 1800 /uL (1100-4500); Lymphocytes Percent Auto 26.4 % (25-40); Mean Corpuscular HGB Conc 33.9 % (30-36); Mean Corpuscular Hemoglobin 30.6 PG (26-34); Mean Corpuscular Volume 90.3 fL (80-100); Monocytes Absolute Auto 800 /uL (0-900); Monocytes Percent Auto 11.4 % (3-14); Neutrophils Absolute Auto 4000 /uL (1500-7000); Neutrophils Percent Auto 58.6 % (50-75); Platelet Count 172 X10^3/uL (150-400); Red Blood Cell Count 5.06 X10^6/uL (4.5-5.9); Red Cell Distribution Width 13.1 % (11.6-14.8); White Blood Cell Count 6.8 X10^3/uL (4.5-11.0)
[2023-09-03 14:14] LABS: Hemoglobin A1C% w Est Avg Glu 7.5 % (4.0-6.0)
[2023-09-03 14:21] LABS: Albumin 4.2 g/dL (3.5-5.0); BUN Creatinine Ratio 22.1 (6-22); Blood Urea Nitrogen 17 mg/dL (9-20); Calcium 9.7 mg/dL (8.4-10.2); Carbon Dioxide 24 mmol/L (22-32); Chloride 102 mmol/L (98-107); Estimated Glomerular Filt Rate > 60 mL/min (>60); Glucose 161 mg/dL (80-110); HEMOLYSIS 18 (0-50); Potassium 4.2 mmol/L (3.4-5.1); Sodium 136 mmol/L (137-145)
[2023-09-03 14:29] LABS: Prealbumin 27.3 mg/dL (17.6-36.0)
[2023-09-03 16:51] LABS: Vitamin D 25 Hydroxy (D3) 29.7 ng/mL (30.0-100.0)
== END ==
PROVIDERS: PCP Internal Medicine; Referring Provider Orthopaedic Surgery Adult Reconstructive Orthopaedic Surgery; Visit Provider Orthopaedic Surgery Adult Reconstructive Orthopaedic Surgery
DX: Z01.818 Encounter for other preprocedural examination (principal); R73.9 Hyperglycemia, unspecified; E55.9 Vitamin D deficiency, unspecified; R77.0 Abnormality of albumin; Z01.812 Encounter for preprocedural laboratory examination
CPT/HCPCS: 36415; 80048; 82040; 82306; 83036; 84134; 85025; 93005; 93010

== ENCOUNTER → 2023-10-15 09:13 | Outpatient (CLI) | payer MEDICARE, SELFPAY ==
[2023-10-15 11:04] LABS: Alanine Aminotransferase 44 IU/L (<50); Albumin 3.9 g/dL (3.5-5.0); Albumin Globulin Ratio 1.6 (1.0-2.8); Alkaline Phosphatase 69 U/L (38-126); Aspartate Aminotransferase 38 IU/L (17-59); Bilirubin Total 0.8 mg/dL (0.2-1.3); Bilirubin Unconjugated 0.6 mg/dL (0.0-1.1); Cholesterol 85 mg/dL (140-199); Globulin 2.4 g/dL (1.7-4.1); HDL Cholesterol 30 mg/dL (40-60); HEMOLYSIS < 15 (0-50); LDL Cholesterol Calculated 30 mg/dL (<100); Total Protein 6.3 g/dL (6.3-8.2); Triglycerides 126 mg/dL (35-150)
[2023-10-15 11:22] LABS: Creatinine Urine Random 59.4 mg/dL
[2023-10-15 11:26] LABS: Microalbumi Creatinin Ratio Ur 10.1 ug/mg CR (<30); Microalbumin Urine Random 0.6 mg/dL (0-1.6)
[2023-10-15 11:27] LABS: TSH w/ Reflex to FT4 0.29 uIU/mL (0.47-4.68)
[2023-10-15 12:39] LABS: Free T4, Direct Thyroxine 1.74 ng/dL (0.78-2.19)
[2023-10-16 16:54] LABS: Hepatitis B Surface Antigen NEGATIVE s/c (NEGATIVE)
[2023-10-16 17:43] LABS: Hep C Virus Ab w/Reflex Quant NEGATIVE s/c (NEGATIVE)
[2023-10-17 07:10] LABS: Hepatitis B Surf Ab Qualitativ Non Reactive (.)
== END ==
PROVIDERS: PCP Internal Medicine; Referring Provider Internal Medicine; Visit Provider Internal Medicine
DX: E03.9 Hypothyroidism, unspecified (principal); E78.2 Mixed hyperlipidemia; I10 Essential (primary) hypertension; K75.81 Nonalcoholic steatohepatitis (NASH); E11.59 Type 2 diabetes mellitus with other circulatory complications; R74.01 Elevation of levels of liver transaminase levels
CPT/HCPCS: 36415; 80061; 80076; 82043; 82570; 84439; 84443; 86706; 86803; 87340

== ENCOUNTER → 2024-04-05 08:25 | Outpatient (CLI) | payer MEDICARE, SELFPAY ==
[2024-04-05 09:48] LABS: Hemoglobin A1C% w Est Avg Glu 8.1 % (4.0-6.0)
[2024-04-05 09:51] LABS: Aspartate Aminotransferase 37 IU/L (17-59); BUN Creatinine Ratio 24.4 (6-22); Blood Urea Nitrogen 19 mg/dL (9-20); Calcium 9.4 mg/dL (8.4-10.2); Carbon Dioxide 24 mmol/L (22-32); Chloride 108 mmol/L (98-107); Estimated Glomerular Filt Rate > 60 mL/min (>60); Glucose 141 mg/dL (80-110); HEMOLYSIS 35 (0-50); Potassium 4.5 mmol/L (3.4-5.1); Sodium 139 mmol/L (137-145)
== END ==
PROVIDERS: PCP Internal Medicine; Referring Provider Internal Medicine; Visit Provider Internal Medicine
DX: E11.59 Type 2 diabetes mellitus with other circulatory complications (principal); E03.9 Hypothyroidism, unspecified; E78.2 Mixed hyperlipidemia; I10 Essential (primary) hypertension
CPT/HCPCS: 36415; 80048; 83036; 84450

== ENCOUNTER → 2024-08-16 12:30 | Outpatient (CLI) | payer MEDICARE, SELFPAY ==
[2024-08-16 13:55] LABS: Hematocrit 46.9 % (41-53); Hemoglobin 15.7 g/dL (13.5-17.5); Mean Corpuscular HGB Conc 33.3 % (30-36); Mean Corpuscular Hemoglobin 29.4 PG (26-34); Mean Corpuscular Volume 88.2 fL (80-100); Platelet Count 201 X10^3/uL (150-400); Red Blood Cell Count 5.32 X10^6/uL (4.5-5.9); Red Cell Distribution Width 13.3 % (11.6-14.8); White Blood Cell Count 8.5 X10^3/uL (4.5-11.0)
[2024-08-16 14:03] LABS: Hemoglobin A1C% w Est Avg Glu 7.5 % (4.0-6.0)
[2024-08-16 14:23] LABS: Alanine Aminotransferase 57 IU/L (<50); Albumin 4.3 g/dL (3.5-5.0); Alkaline Phosphatase 70 U/L (38-126); Aspartate Aminotransferase 47 IU/L (17-59); BUN Creatinine Ratio 20.2 (6-22); Bilirubin Total 0.6 mg/dL (0.2-1.3); Blood Urea Nitrogen 17 mg/dL (9-20); Calcium 9.7 mg/dL (8.4-10.2); Carbon Dioxide 22 mmol/L (22-32); Chloride 105 mmol/L (98-107); Cholesterol 94 mg/dL (140-199); Estimated Glomerular Filt Rate > 60 mL/min (>60); Globulin 2.1 g/dL (1.7-4.1); Glucose 156 mg/dL (80-110); HDL Cholesterol 35 mg/dL (40-60); HEMOLYSIS < 15 (0-50); LDL Cholesterol Calculated 36 mg/dL (<100); Lactate Dehydrogenase 159 U/L (120-246); Potassium 4.1 mmol/L (3.4-5.1); Sodium 138 mmol/L (137-145); Total Protein 6.4 g/dL (6.3-8.2); Triglycerides 117 mg/dL (35-150)
[2024-08-16 14:45] LABS: Creatinine Urine Random 56.02 mg/dL
[2024-08-16 14:49] LABS: Microalbumin Urine Random < 0.6 mg/dL (0-1.6)
[2024-08-16 14:52] LABS: TSH w/ Reflex to FT4 0.56 uIU/mL (0.47-4.68)
[2024-08-16 14:53] LABS: Prostate Specific Antigen 0.994 ng/mL (0.10-4.00)
== END ==
PROVIDERS: PCP Internal Medicine; Referring Provider Internal Medicine; Visit Provider Internal Medicine
DX: E11.42 Type 2 diabetes mellitus with diabetic polyneuropathy (principal); N40.1 Benign prostatic hyperplasia with lower urinary tract symptoms; E78.2 Mixed hyperlipidemia; E03.9 Hypothyroidism, unspecified; N13.8 Other obstructive and reflux uropathy; C82.90 Follicular lymphoma, unspecified, unspecified site
CPT/HCPCS: 36415; 80053; 80061; 82043; 82570; 83036; 83615; 84153; 84443; 85027

== ENCOUNTER → 2024-09-09 11:32 | Outpatient (CLI) | payer MEDICARE, SELFPAY | PROVIDERS: PCP Internal Medicine; Referring Provider Internal Medicine; Visit Provider Internal Medicine | DX: Z20.9 Contact with and (suspected) exposure to unspecified communicable disease (principal) | CPT/HCPCS: 36415; 86617 ==

== ENCOUNTER → 2024-09-23 10:23 | Outpatient (CLI) | payer MEDICARE, SELFPAY ==
[2024-09-23 11:26] LABS: Magnesium 1.8 mg/dL (1.6-2.3)
[2024-09-23 11:57] LABS: Thyroid Stimulating Hormone 0.207 uIU/mL (0.47-4.68)
== END ==
PROVIDERS: PCP Internal Medicine; Referring Provider Internal Medicine Cardiovascular Disease; Visit Provider Internal Medicine Cardiovascular Disease
DX: I10 Essential (primary) hypertension (principal); R42 Dizziness and giddiness
CPT/HCPCS: 36415; 83735; 84436; 84443

== ENCOUNTER → 2024-09-28 13:44 | Outpatient (CLI) | payer MEDICARE, SELFPAY ==
--- NOTE | 2024-09-28 | DI.ECHO.S_ITS ---
[facility] +---------+ Hospital : : [address] : : [id number] : : Phone: [phone] Echocardiogram Report + + :Name: TORI SINGH Study Date: 09/28/2024 Height: 68 in : :[facility] ReadingLocation: Weight: 192 lb : : Gender: Male BSA: 2.0 m2 : :: 1950 Age: 74 yrs BP: 134/74 mmHg: :Reason For Study: DIZZINESS : :Ordering Physician: HERRERA, : :JOVANI Performed By: Isi Lancaster : :Referring: JOVANI SILVERMAN : + + Interpretation Summary 1) Mildly increased left ventricular thickness (concentric) with normal size, normal wall motion, and systolic function (EF 60-65%). 2) Normal right ventricular size and function. 3) There is mild aortic stenosis (valve area 1.6cm2, mean gradient 9.6mmHg). 4) The ascending aorta is mildly enlarged at 4.1cm. 5) Compared to the Echo done 05/27/2023, no significant change. Procedure: A two-dimensional transthoracic echocardiogram with color flow and Doppler was performed. The study quality was technically adequate. Comparison is made with the echocardiogram of 05/27/2023. The patient was in sinus rhythm with heart rates between 61-72 bpm during the exam. Left Ventricle: The left ventricle is normal in size. There is mild concentric left ventricular hypertrophy. The ejection fraction is estimated to be 60-65%. Left ventricular systolic function appears normal without focal wall motion abnormalities. Diastolic parameters suggest a relaxation abnormality of the left ventricle, consistent with probable normal filling pressures. Right Ventricle: The right ventricle is normal in size and function. Atria: The left atrium is moderately dilated. Right atrial size is normal. There is no Doppler evidence for an interatrial shunt. Mitral Valve: The mitral valve leaflets appear to open well. There is trace mitral regurgitation. Aortic Valve: The aortic valve is trileaflet. The aortic valve is moderately calcified. The peak aortic velocity is 2.0 m/sec. The aortic valve mean gradient is 9.6 mmHg. The calculated aortic valve area is 1.6 cm2. There is mild aortic stenosis. No aortic regurgitation is present. Tricuspid Valve: The tricuspid valve leaflets are thin and pliable. There is mild tricuspid regurgitation. The right ventricular systolic pressure is estimated to be at least 23 mmHg based on an estimated right atrial pressure of 3 mm Hg. Pulmonic Valve: The pulmonic valve leaflets are thin and pliable; valve motion is normal. There is no pulmonic valvular regurgitation. Great Vessels: The aortic root is normal size. The ascending aorta is mildly enlarged. The IVC is of normal diameter and collapses greater than 50% with a sniff. This suggests a low right atrial pressure of 3 mm Hg. Pericardium/ Pleura There is no pericardial effusion. There is no pleural effusion. MMode/2D Measurements & Calculations LVIDd: 5.3 cm LVOT diam: 2.1 cm LVIDs: 3.9 cm Ao root diam: 3.6 cm FS: 26.1 % asc Aorta Diam: 4.1 cm EPSS: 0.85 cm Ao Arch Diam (Prox Trans): 3.2 cm IVSd: 1.1 cm LVPWd: 1.1 cm LV parra. diameter/BSA (cm/m^2): 2.6 LV sys. diameter/BSA (cm/m^2): 1.9 LA A2 area: 21.1 cm2 RA long axis: 5.9 cm LA A4 area: 23.7 cm2 RA area: 19.3 cm2 LA length (vol): 5.8 cm RA vol: 54.4 ml LA vol: 72.8 ml RA : 27.1 ml/m2 LA vol index: 36.2 ml/m2 IVC diam: 1.8 cm RVD1 (basal): 3.8 cm RVD2 (mid): 3.6 cm TAPSE: 2.5 cm Doppler Measurements & Calculations Ao V2 max: 202.1 cm/sec LVOT Max Dhaval: 93.0 cm/sec Ao V2 mean: 138.7 cm/sec LV V1 max P.5 mmHg Ao max P.7 mmHg LV V1 VTI: 22.4 cm Ao mean P.6 mmHg MIRIAM(I,D): 1.6 cm2 Ao V2 VTI: 45.8 cm MIRIAM(V,D): 1.6 cm2 sev ratio: 0.49 MIRIAM indexed to BSA (cm^2/m^2): 0.82 MV E max dhaval: 63.8 cm/sec TR max dhaval: 222.8 cm/sec MV A max dhaval: 81.9 cm/sec TR max P.9 mmHg MV E/A: 0.78 PA V2 max: 109.6 cm/sec Med Peak E' Dhaval: 7.4 cm/sec PA V2 mean: 74.0 cm/sec E/E' med: 8.7 PA mean P.4 mmHg Lat Peak E' Dhaval: 7.5 cm/sec PA pr(Accel): 29.3 mmHg E/E' lat: 8.5 E/e' average: 8.6 MV dec time: 0.27 sec SV(LVOT): 75.5 ml Reading Physician:04:07 PM
== END ==
PROVIDERS: PCP Internal Medicine; Referring Provider Internal Medicine Cardiovascular Disease; Visit Provider Internal Medicine Cardiovascular Disease
DX: R42 Dizziness and giddiness (principal); I08.2 Rheumatic disorders of both aortic and tricuspid valves; I77.89 Other specified disorders of arteries and arterioles
CPT/HCPCS: 93306

== ENCOUNTER → 2024-09-30 10:06 | Outpatient (CLI) | payer MEDICARE, SELFPAY ==
--- NOTE | 2024-10-01 17:45 | DI.NM.S_ITS ---
DATE OF SERVICE: 09/30/2024 NUCLEAR CARDIOLOGY MYOCARDIAL PERFUSION STUDY PROCEDURE: Exercise treadmill stress and rest myocardial perfusion imaging with gating to assess ejection fraction and regional wall motion. ORDERING PROVIDER: Quique Basilio MD. 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 CARDIAC STRESS: The patient was able to exercise for 9 minutes 49 seconds on a standard John protocol suggesting excellent exercise capacity with an JOSÉ MANUEL of -51%, achieving 10.1 METS. He had a normal heart rate and blood pressure response to exercise with a maximum heart rate of 146 bpm (100% of his predicted maximum). His resting blood pressure is 142/82, increasing to a maximum of 180/80. He had no chest discomfort or other anginal symptoms. His resting ECG shows sinus rhythm with an incomplete RBBB, left anterior fascicular block, and relatively low QRS voltage. He has occasional PVCs, at times in a bigeminal pattern. With stress, there are no significant ST-segment shifts. He continues to have occasional ventricular ectopy, at times in couplets, triplets, and brief runs up to 6 beats, but no sustained ventricular ectopy. In recovery, his PVCs generally resolve. At 9 minutes 20 seconds of exercise at a heart rate of 127 bpm, 26.2 millicuries of technetium-99m Myoview was injected and he was imaged 15 minutes later using a gated SPECT acquisition protocol. The day prior while at rest, he had been injected with 26.3 millicuries of technetium- 99m Myoview was imaged 15 minutes later, again using a gated SPECT acquisition protocol. FINDINGS: 1. Raw data. There is fairly good myocardial tracer uptake. The lung/heart ratio is normal at 0.09 with a normal TID ratio of 1.05. 2. Quantitated gated SPECT: Post-stress ejection fraction is 65% without any focal wall motion abnormality. The right ventricular free wall appears to have increased tracer uptake and may be mildly enlarged. The resting ejection fraction is 59% with a mildly increased end- diastolic volume of 137 mL. 3. Myocardial perfusion imaging: Post-stress supine images show a normal myocardial perfusion pattern without any perfusion defects, supported by normal perfusion imaging in the prone position. The resting images show an identical perfusion pattern without any areas of significant improvement. IMPRESSION: 1. Normal myocardial perfusion study for ischemia. 2. No perfusion defects to suggest myocardial ischemia or previous myocardial infarction. 3. Normal left ventricular systolic function without focal wall motion abnormality. Left ventricular volumes are mildly increased. There is increased right ventricular free wall tracer uptake with suggestion of right ventricular enlargement that could reflect a right ventricular overload condition but clinical correlation is needed. 4. Excellent exercise capacity without angina or ECG evidence of ischemia. He has occasional PVCs at rest with modest increase in PVC burden with stress, at times with brief nonsustained ventricular tachycardia up to six beats. He had a normal blood pressure response to exercise. 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
== END ==
LOC: NUCM 10:06
PROVIDERS: PCP Internal Medicine; Referring Provider Internal Medicine Cardiovascular Disease; Visit Provider Internal Medicine Cardiovascular Disease
DX: I49.3 Ventricular premature depolarization (principal); I25.10 Atherosclerotic heart disease of native coronary artery without angina pectoris
CPT/HCPCS: 78452; 93017; A9502

== ENCOUNTER 2024-12-13 08:55 | Day surgery (SDC) | payer MEDICARE, SELFPAY ==
[2024-12-13] MEDS: LACTATED RINGERS 1,000 ML 42 ML IV (09:19)
[2024-12-13 09:23] VITALS: BP 158/75; PULSE 50; RESP 18; TEMP 36.2; O2SAT 100
--- NOTE | 2024-12-13 09:23 | P.HP_ITS ---
History of Present Illness History of Present Illness Date Patient Seen: 12/13/24 Chief complaint: Colonoscopy w/poss bx Narrative: Screening colonoscopy [facility], [facility] Medical History (Updated 10/19/24 @ 08:24 by Desmond Mcdonnell MD) Diarrhea History of colonic polyps Migraine with aura and without status migrainosus Type 2 diabetes mellitus with diabetic polyneuropathy Transaminitis Primary osteoarthritis involving multiple joints HUNT (nonalcoholic steatohepatitis) Bunion, right foot Erectile dysfunction Obesity (BMI 30.0-34.9) Obstructive sleep apnea Plantar warts Foot pain (~2009) Mumps Measles Hearing loss Family history of colon cancer Acquired hypothyroidism Polyneuropathy, unspecified Mixed hyperlipidemia Essential hypertension Type 2 diabetes mellitus with cardiac complication (~1997) Coronary artery disease (~1986) Chronic pain of right knee Acid reflux Seasonal allergies Reactive airway disease HLD (hyperlipidemia) Port-A-Cath in place (~04/2017) Neuropathy Arthritis Surgical History Anesthesia History of surgery History of biopsy (07/21/13) History of colonoscopy History of esophagogastroduodenoscopy (EGD) Hx of bilateral cataract extraction (~2000) Status post correction of deviated nasal septum (~1999) Family History Father Diabetes mellitus Stroke [place] [employer] Diabetes mellitus Stroke Mental health problem Brother Cancer Brother Cancer Brother History of heart disease Sister History of heart disease Hypertension Family/Other Diabetes mellitus Hypertension Social History household members: spouse Smoking Status: Former smoker alcohol intake: current Meds Home Medications and Allergies Home Medications Medication Instructions Recorded Confirmed Type aspirin 81 mg chewable tablet 81 mg PO DAILY 02/13/18 12/13/24 History blood-glucose meter (OneTouch #1 ea 05/01/23 10/15/23 Rx Ultra2 Meter) lancets 30 gauge (OneTouch #100 ea 05/01/23 10/15/23 Rx UltraSoft 2 Lancet) carvedilol 12.5 mg tablet (Coreg) 12.5 mg PO BID #180 tabs 11/03/23 12/13/24 Rx empagliflozin 25 mg tablet 25 mg PO DAILY #90 tabs 01/21/24 12/13/24 Rx (Jardiance) gabapentin 300 mg capsule 300 mg PO BID #180 caps 02/23/24 12/13/24 Rx acetaminophen 500 mg tablet 1,000 mg PO BID Knee & general 04/14/24 12/13/24 History (Acetaminophen Extra Strength) arthritis pain ezetimibe 10 mg tablet 10 mg PO DAILY #90 tabs 05/04/24 12/13/24 Rx blood sugar diagnostic (OneTouch #100 ea 07/29/24 Rx Ultra Test strips) losartan 100 mg tablet See Rx Instructions PO DAILY 08/16/24 12/13/24 History levothyroxine 137 mcg tablet 137 mcg PO DAILY #90 tabs 09/24/24 12/13/24 Rx rosuvastatin 20 mg tablet 20 mg PO DAILY #90 tabs 10/04/24 12/13/24 Rx metformin 1,000 mg tablet,extended 1,000 mg PO BID #180 tabs 10/19/24 12/13/24 Rx release 24hr (osmotic) Allergies Allergy/AdvReac Type Severity Reaction Status Date / Time Sulfa (Sulfonamide Allergy Severe ANAPHYLAXIS Verified 10/19/24 07:55 Antibiotics) [SULFA (SULFONAMIDE ANTIBIOTICS)] lisinopril [LISINOPRIL] Allergy Mild COUGH Verified 10/19/24 07:55 meloxicam AdvReac Intermediate Rash Verified 10/19/24 07:55 metformin AdvReac Intermediate diarrhea? Verified 10/19/24 08:26 nickel AdvReac Verified 10/19/24 07:55 Tegaderm Allergy Intermediate Rash Uncoded 10/19/24 07:55 Exam Narrative Exam Narrative: Oropharynx free of lesions Chest clear to auscultation percussion Cardiac exam reveals no S3 or murmur Assessment & Plan Assessment & Plan narrative: Follow-up screening colonoscopy. Risks, benefits, alternatives have been explained. Time-Based Coding :: [TOTAL MINUTES] spent with patient and on the chart (including review of chart, obtaining history, exam, reviewing outside data, placing orders, documenting exam and treatment plan, and counseling patient) on [DATE]. PROFEE Lead Systems Developer Document charge(s): No
--- NOTE | 2024-12-13 09:24 | P.OP.COLON_ITS ---
Operative Date/Time/Diagnoses Date of procedure: 12/13/24 Pre-op diagnosis: See indication and findings Procedure & Clinicians Study performed: Colonoscopy Same procedure as scheduled: Yes Indications: Follow-up screening colonoscopy, family history colon cancer in his sister Surgeon: Gianna Casas Procedure Notes Procedure in detail: After informed consent was obtained the patient was placed in left lateral decubitus position. The video colonoscope was introduced the rectum slowly adv anced cecum. Preparation was good. On slow withdrawal mucosa was carefully examined. The scope was removed. The patient tolerated procedure well. Blood loss none Complications none Sedation mac Findings 1. Normal colonoscopy to cecum Patient should have follow-up colonoscopy in 5 years due to the first-degree family history
[2024-12-13 09:42] VITALS: BP 100/46; PULSE 60; RESP 14; TEMP 36.2; O2SAT 99
[2024-12-13 09:47] VITALS: BP 113/57; PULSE 62; RESP 16; O2SAT 99
[2024-12-13 09:52] VITALS: BP 128/69; PULSE 58; RESP 16; O2SAT 98
[2024-12-13 09:57] VITALS: BP 138/79; PULSE 64; RESP 16; TEMP 36.2; O2SAT 99
[2024-12-13 10:11] VITALS: BP 147/72; PULSE 55; RESP 14; TEMP 36.4; O2SAT 96
== END 2024-12-13 10:14 | disposition home or self-care (01) ==
PROVIDERS: PCP Internal Medicine; Referring Provider Internal Medicine Gastroenterology; Visit Provider Internal Medicine Gastroenterology
PROC: 0DJD8ZZ Inspection of Lower Intestinal Tract, Via Natural or Artificial Opening Endoscopic (ICD-10-PCS; CPT 45378; principal; 2024-12-13 10:00)
DX: Z12.11 Encounter for screening for malignant neoplasm of colon (principal); Z80.0 Family history of malignant neoplasm of digestive organs; Z87.891 Personal history of nicotine dependence
CPT/HCPCS: G0105; J2704

== ENCOUNTER → 2024-12-21 07:41 | Outpatient (CLI) | payer MEDICARE, SELFPAY ==
[2024-12-21 09:23] LABS: BUN Creatinine Ratio 21.8 (6-22); Blood Urea Nitrogen 17 mg/dL (9-20); Calcium 9.3 mg/dL (8.4-10.2); Carbon Dioxide 24 mmol/L (22-32); Chloride 105 mmol/L (98-107); Estimated Glomerular Filt Rate > 60 mL/min (>60); Glucose 140 mg/dL (80-110); HEMOLYSIS < 15 (0-50); Potassium 4.4 mmol/L (3.4-5.1); Sodium 139 mmol/L (137-145)
[2024-12-21 09:25] LABS: Hemoglobin A1C% w Est Avg Glu 6.3 % (4.0-6.0)
[2024-12-21 09:50] LABS: TSH w/ Reflex to FT4 0.72 uIU/mL (0.47-4.68)
== END ==
PROVIDERS: PCP Internal Medicine; Referring Provider Internal Medicine; Visit Provider Internal Medicine
DX: E11.59 Type 2 diabetes mellitus with other circulatory complications (principal); E03.9 Hypothyroidism, unspecified
CPT/HCPCS: 36415; 80048; 83036; 84443

== ENCOUNTER → 2025-08-04 07:28 | Outpatient (CLI) | payer MEDICARE, SELFPAY ==
[2025-08-04 08:44] LABS: Alanine Aminotransferase 52 IU/L (<50); Albumin 3.9 g/dL (3.5-5.0); Albumin Globulin Ratio 1.8 (1.0-2.8); Alkaline Phosphatase 61 U/L (38-126); Blood Urea Nitrogen 21 mg/dL (9-20); Calcium 9.2 mg/dL (8.4-10.2); Carbon Dioxide 28 mmol/L (22-32); Chloride 106 mmol/L (98-107); Cholesterol 91 mg/dL (140-199); Estimated Glomerular Filt Rate > 60 mL/min (>60); Globulin 2.2 g/dL (1.7-4.1); Glucose 127 mg/dL (70-99); HDL Cholesterol 38 mg/dL (40-60); HEMOLYSIS < 15 (0-50); Potassium 4.1 mmol/L (3.4-5.1); Sodium 140 mmol/L (137-145); Total Protein 6.1 g/dL (6.3-8.2); Triglycerides 76 mg/dL (35-150)
[2025-08-04 09:07] LABS: Prostate Specific Antigen 0.978 ng/mL (0.10-4.00)
[2025-08-04 11:23] LABS: Hemoglobin A1C% w Est Avg Glu 6.3 % (4.0-6.0)
[2025-08-04 20:58] LABS: Microalbumi Creatinin Ratio Ur 9.0 ug/mg CR (<30)
== END ==
PROVIDERS: PCP Internal Medicine; Referring Provider Internal Medicine; Visit Provider Internal Medicine
DX: E11.42 Type 2 diabetes mellitus with diabetic polyneuropathy (principal); N40.1 Benign prostatic hyperplasia with lower urinary tract symptoms; E78.2 Mixed hyperlipidemia; N13.8 Other obstructive and reflux uropathy; I10 Essential (primary) hypertension
CPT/HCPCS: 36415; 80053; 80061; 82043; 82570; 83036; 84153

== ENCOUNTER → 2025-08-23 11:10 | Outpatient (CLI) | payer MEDICARE, SELFPAY ==
--- NOTE | 2025-08-23 11:12 | DI.RAD.S_ITS ---
PROCEDURE: XR SHOULDER LT MIN 2V INDICATIONS: shoulder pain TECHNIQUE: 3 views of the shoulder were acquired. COMPARISON: None. FINDINGS: Bones: No fractures or dislocations. No suspicious bony lesions. Visualized ribs appear intact. Mild to moderate acromioclavicular and glenohumeral joint space narrowing. Soft tissues: No suspicious soft tissue calcifications. IMPRESSION: No acute fracture. 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 Dictated by: Analy Badilol M.D. on 08/24/2025 at 5:47 Approved by: Analy Badillo M.D. on 08/24/2025 at 5:48
--- NOTE | 2025-08-23 11:12 | DI.RAD.S_ITS ---
P an ROCEDURE: XR SHOULDER RT MIN 2V INDICATIONS: shoulder pain TECHNIQUE: 3 views of the shoulder were acquired. COMPARISON: None. FINDINGS: Bones: No fractures or dislocations. No suspicious bony lesions. Visualized ribs appear intact. Moderate to marked acromioclavicular and mild glenohumeral joint space narrowing and osteophytes. Soft tissues: No suspicious soft tissue calcifications. IMPRESSION: No acute fracture. Moderate to marked acromioclavicular and mild glenohumeral joint arthritis. Dictated by: Analy Badillo M.D. on 08/24/2025 at 5:46 Approved by: Analy Badillo M.D. on 08/24/2025 at 5:47
[2025-08-23 11:56] LABS: Hematocrit 41.6 % (41-53); Hemoglobin 14.1 g/dL (13.5-17.5); Mean Corpuscular HGB Conc 33.8 % (30-36); Mean Corpuscular Hemoglobin 29.8 PG (26-34); Mean Corpuscular Volume 88.3 fL (80-100); Platelet Count 199 X10^3/uL (150-400)
[2025-08-23 12:24] LABS: HEMOLYSIS < 15 (0-50); Iron 79 ug/dL (49-181)
[2025-08-23 12:36] LABS: Percent Iron Saturation 30 % (20-50); Total Iron Binding Capacity 263 ug/dL (261-462); Transferrin 209 mg/dL (206-381)
[2025-08-23 12:55] LABS: TSH w/ Reflex to FT4 1.22 uIU/mL (0.47-4.68)
[2025-08-23 13:00] LABS: Ferritin 90 ng/mL (18-464)
[2025-08-23 13:20] LABS: Vitamin B12 Reflex MMA if <400 316 pg/mL (239-931)
== END ==
PROVIDERS: PCP Internal Medicine; Referring Provider Internal Medicine; Visit Provider Internal Medicine
DX: M19.011 Primary osteoarthritis, right shoulder (principal); M19.012 Primary osteoarthritis, left shoulder; M75.81 Other shoulder lesions, right shoulder; M75.82 Other shoulder lesions, left shoulder; E03.9 Hypothyroidism, unspecified; E11.42 Type 2 diabetes mellitus with diabetic polyneuropathy; E53.8 Deficiency of other specified B group vitamins; E61.1 Iron deficiency
CPT/HCPCS: 36415; 73030; 82607; 82728; 83540; 83550; 83921; 84443; 85027